=== PATIENT | female | born 1985 | race Caucasian/White ===

== ENCOUNTER 2017-11-25 02:04 | Emergency (ER) | payer MEDICAID, OTHER ==
[2017-11-25 02:22] VITALS: RESP 20; TEMP 97.3
[2017-11-25 02:49] LABS: APPEARANCE,URINE Clear; BILIRUBIN,URINE NEGATIVE (NEGATIVE); COLOR,URINE Yellow; GLUCOSE, URINE (UA) NEGATIVE (NEGATIVE); KETONES,URINE NEGATIVE (NEGATIVE); LEUKOCYTE ESTERASE ,URINE NEGATIVE (NEGATIVE); NITRATE,URINE NEGATIVE (NEGATIVE); OCCULT BLOOD,URINE NEGATIVE (NEG-TRACE); UROBILINOGEN,URINE 0.2 (0.2-1.0 EU)
[2017-11-25 02:58] LABS: RBC,URINE NEG (0-3AV/HPF); WBC,URINE 0-2 (0-5AV/HPF)
[2017-11-25 03:25] LABS: BASOPHILS % (AUTO) 0 % (0-3); EOSINOPHILS % (AUTO) 3 % (0-9); HEMATOCRIT 32 % (35-47); MEAN CORPUSCULAR HGB CONC 35.3 gm/dl (32.0-36.0); MEAN CORPUSCULAR VOLUME 88 fL (81-99); MONOCYTES % (AUTO) 9.2 % (0-12); NEUTROPHILS % (AUTO) 66.2 % (37-80)
[2017-11-25 03:34] LABS: CALCIUM 8.1 mg/dl (8.5-10.1); POTASSIUM 3.8 mMol/L (3.5-5.1)
[2017-11-25 04:10] VITALS: BP 115/72; PULSE 80; O2SAT 100
== END 2017-11-25 03:46 | disposition home or self-care (01) ==
LOC: ED 02:04
DX: O26.893 Other specified pregnancy related conditions, third trimester (principal); Z3A.29 29 weeks gestation of pregnancy; R10.30 Lower abdominal pain, unspecified; R19.7 Diarrhea, unspecified
CPT/HCPCS: 36415; 59025; 80048; 81001; 85025; 99284

== ENCOUNTER 2018-01-01 20:35 | Emergency (ER) | payer SELFPAY ==
[2018-01-01 21:10] LABS: APPEARANCE,URINE Clear; BILIRUBIN,URINE NEGATIVE (NEGATIVE); COLOR,URINE Yellow; GLUCOSE, URINE (UA) NEGATIVE (NEGATIVE); KETONES,URINE 3+ (NEGATIVE); LEUKOCYTE ESTERASE ,URINE NEGATIVE (NEGATIVE); NITRATE,URINE NEGATIVE (NEGATIVE); OCCULT BLOOD,URINE 2+ (NEG-TRACE); UROBILINOGEN,URINE 0.2 (0.2-1.0 EU)
[2018-01-01 21:12] VITALS: RESP 16; TEMP 97.5; O2SAT 97
[2018-01-01 21:34] LABS: RBC,URINE 30-40 (0-3AV/HPF); WBC,URINE 0-2 (0-5AV/HPF)
[2018-01-01] MEDS ORDERED: LACTATED RINGERS 1,000 ML IV ONE (21:41)
[2018-01-01 22:00] LABS: BASOPHILS % (AUTO) 0 % (0-3); EOSINOPHILS % (AUTO) 2 % (0-9); HEMATOCRIT 33 % (35-47); MEAN CORPUSCULAR HGB CONC 34.7 gm/dl (32.0-36.0); MEAN CORPUSCULAR VOLUME 87 fL (81-99); NEUTROPHILS % (AUTO) 71.4 % (37-80)
[2018-01-01 22:20] LABS: ALBUMIN 2.9 gm/dl (3.4-5.0); CALCIUM 8.3 mg/dl (8.5-10.1); POTASSIUM 3.1 mMol/L (3.5-5.1)
[2018-01-01 22:54] VITALS: BP 122/82; PULSE 81
[2018-01-01 22:54] LABS: AMPHETAMINES NEGATIVE (NEGATIVE); METHADONE NEGATIVE (NEGATIVE); OPIATES(OP13) NEGATIVE (NEGATIVE); OXYCODONE(OXY) NEGATIVE (NEGATIVE); PROPOXYPHENE(PPX) NEGATIVE (NEGATIVE); TRICYCLIC ANTIDEPRESSANTS NEGATIVE (NEGATIVE)
[2018-01-01] MEDS ORDERED: POTASSIUM CHLORIDE 10 MEQ TER PO ONE (23:01)
[2018-01-01] MEDS ORDERED: POTASSIUM CHLORIDE 10 MEQ TER ONE (23:27)
== END 2018-01-02 00:42 | disposition home or self-care (01) | DRG 780 ==
LOC: ED 20:35
DX: O47.1 False labor at or after 37 completed weeks of gestation (principal); E87.6 Hypokalemia; R31.9 Hematuria, unspecified; Z3A.34 34 weeks gestation of pregnancy
CPT/HCPCS: 59025; 80053; 80305; 81001; 84112; 85025; 96365; 99284; 99285; A9270-GY

== ENCOUNTER 2018-02-12 16:13 | Inpatient (IN) | payer OTHER ==
[2018-02-12] MEDS ORDERED: SODIUM CHLORIDE 0.9% FLUSH 10 ML SOL IV PRN (19:24)
[2018-02-12] MEDS ORDERED: CARBOPROST 250 MCG/ML SOL IM PRN (19:24)
[2018-02-12] MEDS ORDERED: MEPIVACAINE HCL 1% MPF 30 ML SOL INFIL PRN (19:24)
[2018-02-12] MEDS ORDERED: LACTATED RINGERS 1,000 ML IV PRN (19:24)
[2018-02-12] MEDS ORDERED: OXYTOCIN 10000 MU/ML SOL IM PRN (19:24)
[2018-02-12] MEDS ORDERED: FENTANYL 100MCG/2ML SOL IV PRN (19:24)
[2018-02-12] MEDS ORDERED: METHYLERGONOVINE MALEATE 0.2 MG/ML SOL IM PRN (19:24)
[2018-02-12 19:27] LABS: BASOPHILS % (AUTO) 0 % (0-3); EOSINOPHILS % (AUTO) 1 % (0-9); HEMATOCRIT 34 % (35-47); MEAN CORPUSCULAR HGB CONC 35.1 gm/dl (32.0-36.0); MEAN CORPUSCULAR VOLUME 90 fL (81-99); MONOCYTES % (AUTO) 6.4 % (0-12); NEUTROPHILS % (AUTO) 72.8 % (37-80)
[2018-02-12] MEDS: SODIUM CHLORIDE 0.9% FLUSH 10 ML SOL IV SCH (23:13)
[2018-02-13] MEDS: LACTATED RINGERS 1,000 ML IV SCH ×5 (02:53→20:32)
[2018-02-13] MEDS ORDERED: EPHEDRINE SULFATE 50 MG/ML SOL IV PRN (02:54)
[2018-02-13] MEDS ORDERED: NALBUPHINE HCL 20 MG/ML SOL IV PRN (02:54)
[2018-02-13] MEDS ORDERED: NALOXONE HYDROCHLORIDE 0.4 MG/ML SOL IV PRN (02:54)
[2018-02-13] MEDS ORDERED: DIPHENHYDRAMINE 50 MG/ML SOL IV PRN (02:54)
[2018-02-13] MEDS ORDERED: FENTANYL 250 MCG/ 5ML SOL ONE (03:09)
[2018-02-13] MEDS ORDERED: ROPIVACAINE HYDROCHLORIDE 5 MG/ML SOL ONE (03:10)
[2018-02-13] MEDS ORDERED: TERBUTALINE SULFATE 1 MG/ML SOL SC PRN (07:17)
[2018-02-13] MEDS ORDERED: OXYTOCIN 10000 MU/ML SOL ONE ×2 (07:24→17:16)
[2018-02-13] MEDS ORDERED: LACTATED RINGERS 1,000 ML ONE (07:24)
[2018-02-13] MEDS ORDERED: LACTATED RINGERS 1,000 ML IV SCH (07:30)
[2018-02-13] MEDS ORDERED: OXYTOCIN 10000 MU/ML 20,000 MU in LACTATED RINGERS 1,000 ML IV SCH (07:30)
[2018-02-13] MEDS: SODIUM CHLORIDE 0.9% FLUSH 10 ML SOL IV SCH ×2 (07:49→20:59)
[2018-02-13] MEDS ORDERED: LIDOCAINE HCL 2% MPF SOL ONE (15:56)
[2018-02-13] MEDS ORDERED: MISOPROSTOL 100 MCG TAB ONE (17:16)
[2018-02-13] MEDS ORDERED: CARBOPROST 250 MCG/ML SOL IM ONE (17:17)
[2018-02-13] MEDS ORDERED: METHYLERGONOVINE MALEATE 0.2 MG/ML SOL ONE (17:17)
[2018-02-13] MEDS ORDERED: BISACODYL 10 MG SUP PR PRN (18:16)
[2018-02-13] MEDS ORDERED: TEMAZEPAM 15MG 15 MG CAP PO PRN (18:16)
[2018-02-13] MEDS ORDERED: BENZOCAINE/MENTHOL 1 SPR TOP PRN (18:16)
[2018-02-13] MEDS ORDERED: WITCH HAZEL 1 EA PAD TOP PRN (18:16)
[2018-02-13] MEDS ORDERED: METHYLERGONOVINE MALEATE 0.2 MG TAB PO PRN (18:16)
[2018-02-13] MEDS ORDERED: FLEET ENEMA PR PRN (18:16)
[2018-02-13] MEDS: IBUPROFEN 600 MG TAB PO PRN (20:00)
[2018-02-13] MEDS: APAP/HYDROCODONE 325/5 TAB PO PRN (20:59)
[2018-02-13] MEDS: DOCUSATE SODIUM 100 MG SGL PO SCH (20:59)
[2018-02-13 21:11] VITALS: RESP 16
[2018-02-14] MEDS: APAP/HYDROCODONE 325/5 TAB PO PRN (05:41)
[2018-02-14] MEDS: SODIUM CHLORIDE 0.9% FLUSH 10 ML SOL IV SCH (05:42)
[2018-02-14] MEDS: DOCUSATE SODIUM 100 MG SGL PO SCH (08:26)
[2018-02-14 09:45] LABS: ABO O
[2018-02-14 09:50] LABS: RH TYPE Negative
[2018-02-14 12:33] VITALS: BP 105/70; PULSE 72; TEMP 98.2; O2SAT 95
[2018-02-14] MEDS: IBUPROFEN 600 MG TAB PO PRN (16:35)
== END 2018-02-14 19:05 | disposition home or self-care (01) | DRG 560 ==
LOC: OBOP 16:13 → UNDOADMIN 16:13 → OB 16:13 → EDSTATUS 18:10
PROVIDERS: ADMIT Family Medicine; ATTEND Family Medicine
PROC: 0U7C7ZZ Dilation of Cervix, Via Natural or Artificial Opening (ICD-10-PCS; principal; 2018-02-12)
PROC: 10907ZC Drainage of Amniotic Fluid, Therapeutic from Products of Conception, Via Natural or Artificial Opening (ICD-10-PCS; 2018-02-13)
PROC: 10E0XZZ Delivery of Products of Conception, External Approach (ICD-10-PCS; 2018-02-13)
DX: O76 Abnormality in fetal heart rate and rhythm complicating labor and delivery (principal); O70.0 First degree perineal laceration during delivery; Z3A.39 39 weeks gestation of pregnancy; Z37.0 Single live birth
CPT/HCPCS: 36415; 59025; 85018; 85025; 86900; 86901; J0670; J2210; J2590; J2795; J3010; J3105; A9270-GY; J3490

== ENCOUNTER 2019-02-23 17:43 | Emergency (ER) | payer OTHER ==
[2019-02-23] MEDS ORDERED: KETOROLAC TROMETHAMINE 30 MG/ML SOL IM ONE (19:17)
[2019-02-23] MEDS ORDERED: TRAMADOL HYDROCHLORIDE 50 MG TAB PO ONE (19:17)
[2019-02-23] MEDS ORDERED: TRAMADOL HYDROCHLORIDE 50 MG TAB ONE (19:22)
[2019-02-23] MEDS ORDERED: KETOROLAC TROMETHAMINE 30 MG/ML SOL ONE (19:22)
[2019-02-23] MEDS ORDERED: LEVOFLOXACIN 500 MG TAB PO ONE (19:24)
[2019-02-23] MEDS ORDERED: LEVOFLOXACIN 500 MG TAB ONE (19:27)
[2019-02-23 19:37] VITALS: RESP 20; TEMP 98.1; O2SAT 98
[2019-02-23 19:51] VITALS: BP 125/80; PULSE 93
== END 2019-02-23 20:00 | disposition home or self-care (01) | DRG 152 ==
LOC: ED 17:43
DX: H66.91 Otitis media, unspecified, right ear (principal); J18.9 Pneumonia, unspecified organism; R06.02 Shortness of breath
CPT/HCPCS: 71046; 96372; 99283; J1885; A9270-GY